=== PATIENT | female | born 1960 | race Caucasian/White ===

== ENCOUNTER 2021-07-12 15:41 | Emergency (ER) | payer MEDICARE, OTHER ==
[2021-07-12 16:40] LABS: HEMOGLOBIN 11.4 gm/dl (12.3-15.3); RED BLOOD COUNT 3.44 M/UL (4.00-5.10); WHITE BLOOD COUNT 13.6 K/UL (4.5-11.0)
[2021-07-12 17:01] LABS: BUN/CREATININE RATIO 7 (0-10)
== END 2021-07-12 20:45 | disposition home or self-care (01) ==
LOC: ER1 15:41
PROVIDERS: Physician Assistant
DX: K59.00 Constipation, unspecified (principal); I13.2 Hypertensive heart and chronic kidney disease with heart failure and with stage 5 chronic kidney disease, or end stage renal disease; I50.9 Heart failure, unspecified; I25.2 Old myocardial infarction; N18.6 End stage renal disease; E78.5 Hyperlipidemia, unspecified; J44.9 Chronic obstructive pulmonary disease, unspecified; Z87.891 Personal history of nicotine dependence; Z90.711 Acquired absence of uterus with remaining cervical stump; Z86.73 Personal history of transient ischemic attack (TIA), and cerebral infarction without residual deficits
CPT/HCPCS: 71045; 80053; 81001; 82140; 82550; 82553; 83690; 83874; 83880; 84484; 85025; 85610; 87086; 96374; 99284; J1170

== ENCOUNTER 2021-07-18 11:51 | Inpatient (IN) | payer MEDICARE, OTHER ==
[~2021-07-18] VITALS: Ht 162.6 cm; Wt 49.9 kg
[2021-07-18 12:55] LABS: HEMOGLOBIN 11.3 gm/dl (12.3-15.3); RED BLOOD COUNT 3.52 M/UL (4.00-5.10); WHITE BLOOD COUNT 9.4 K/UL (4.5-11.0)
[2021-07-18 13:41] LABS: BUN/CREATININE RATIO 6 (0-10)
[2021-07-18] MEDS ORDERED: PROAIR DIGIHAL90 MCG INH (18:41)
[2021-07-18] MEDS ORDERED: ONDANSETRON HCL4 MG PO (18:42)
[2021-07-18] MEDS ORDERED: LASIX80 MG PO (18:43)
[2021-07-18] MEDS ORDERED: CYCLOBENZAPRINE10 MG PO (18:43)
[2021-07-18] MEDS ORDERED: DOCUSATE SODIU100 MG PO (18:43)
[2021-07-18] MEDS ORDERED: MIRTAZAPINE7.5 MG PO (18:44)
[2021-07-18] MEDS ORDERED: LACTULOSE10 GM/15 M PO (18:44)
[2021-07-18] MEDS ORDERED: METOPROLOL TART50 MG PO (18:44)
[2021-07-18] MEDS ORDERED: ASPIRIN EC81 MG PO (18:45)
[2021-07-18] MEDS ORDERED: AMLODIPINE BESYL5 MG PO (18:45)
[2021-07-18] MEDS ORDERED: RENVELA800 MG PO (18:45)
[2021-07-18] MEDS ORDERED: AMITRIPTYLINE H50 MG PO (18:46)
[2021-07-18] MEDS ORDERED: ATORVASTATIN CA40 MG PO (18:46)
[2021-07-18] MEDS ORDERED: OMEPRAZOLE40 MG PO (18:46)
[2021-07-18] MEDS ORDERED: MEGACE TAB 40 M40 MG PO (18:47)
--- NOTE | 2021-07-18 22:36 | NUR ---
PT GETS UP TO BATHROOM REMOVES HER TELE, PATIENT INSTRUCTED SHE MUST LEAVE TELE ON SHE STATES UNDERSTANDING. PORTABLE TELE BOX IS PLACED ON PATIENT TO GIVE HER MORE FREEDOM
[2021-07-19 04:17] LABS: HEMOGLOBIN 9.8 gm/dl (12.3-15.3); WHITE BLOOD COUNT 11.4 K/UL (4.5-11.0)
[2021-07-19 04:20] LABS: RED BLOOD COUNT 3.07 M/UL (4.00-5.10)
[2021-07-20 03:47] LABS: HEMOGLOBIN 9.6 gm/dl (12.3-15.3); RED BLOOD COUNT 3.06 M/UL (4.00-5.10); WHITE BLOOD COUNT 9.8 K/UL (4.5-11.0)
--- NOTE | 2021-07-20 10:43 | NUR ---
07/20/21 1043 SPOKE WITH RADIOLOGY REGARDING CONTRAST ENEMA ORDER. 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 MD STATED HE WANTED GASTROGRAPHIN USED.
--- NOTE | 2021-07-20 15:24 | NUR ---
07/20/21 1525 PATIENT REFUSED DIALYSIS TODAY, PATIENT WAS MADE AWARE OF ELEVATED POTASSIUM PER DR COLE IF SHE STILL REFUSES HE WOULD PLAN TO DO DIALYSIS TOMORROW. PATIENT STATED SHE UNDERSTOOD THE RISKS AND THAT HER POTASSIUM "RUNS THAT HIGH" AND THAT SHE WOULD RATHER HAVE DIALYSIS TOMORROW. GRAIN ELEVATOR AGENT WAS NOTIFIED OF PATIENT REFUSAL
[2021-07-21 04:40] LABS: HEMOGLOBIN 9.8 gm/dl (12.3-15.3); RED BLOOD COUNT 3.04 M/UL (4.00-5.10); WHITE BLOOD COUNT 11.1 K/UL (4.5-11.0)
[2021-07-21 15:30] LABS: HEMOGLOBIN 10.5 gm/dl (12.3-15.3); RED BLOOD COUNT 3.24 M/UL (4.00-5.10); WHITE BLOOD COUNT 13.1 K/UL (4.5-11.0)
[2021-07-22 03:19] LABS: HEMOGLOBIN 10.5 gm/dl (12.3-15.3); RED BLOOD COUNT 3.3 M/UL (4.00-5.10)
[2021-07-23 03:00] LABS: HEMOGLOBIN 10.2 gm/dl (12.3-15.3); RED BLOOD COUNT 3.18 M/UL (4.00-5.10); WHITE BLOOD COUNT 10.3 K/UL (4.5-11.0)
[2021-07-24 06:31] LABS: HEMOGLOBIN 9.9 gm/dl (12.3-15.3); RED BLOOD COUNT 3.21 M/UL (4.00-5.10); WHITE BLOOD COUNT 12.6 K/UL (4.5-11.0)
[2021-07-25 07:12] LABS: HEMOGLOBIN 10.6 gm/dl (12.3-15.3); RED BLOOD COUNT 3.33 M/UL (4.00-5.10); WHITE BLOOD COUNT 13.7 K/UL (4.5-11.0)
--- NOTE | 2021-07-25 19:05 | NUR ---
AT SHIFT CHANGE THIS EVENING, PT WAS EXTREMELY IRRITATED THAT THE PAIN MEDICATION THAT IS NOT SCHEDULED HAS NOT BEEN GIVEN EXACTLY WHEN SHE NEEDS IT OR WHEN SHE WANTS THE MEDICATION, EVEN IF IT IS NOT WITHIN THE 6 HOUR WINDOW OF GIVING THE MEDICATION WRITTEN PER THE MD. PT VOICED UNDERSTANDING THIS MORNING THAT THE DECISION WAS MADE TO DC ONE OF HER PAIN MEDICATIONS DUE TO THE FACT THE THE PT JUST RECENTLY HAD A SMALL BOWEL RESECTION WITH AN OSTOMY AND HAS NOT HAD A BOWEL MOVEMENT IN FIVE DAYS THAT IT WOULD BE IN HER BEST PLAN OF CARE STOP THE IV PUSH PAIN MEDICATION. PT STILL HAS SEVERAL DIFFERENT MEDICATIONS CLASSIFIED PRN SHE CAN BE GIVEN IF NEEDED FOR PAIN. ADDITIONALLY, EXPLAINED TO THE PT THAT SHE HAD A CRITICAL LAB VALUE OF 5.5 WITH PER POTASSIUM WHICH IS THE REASON WHY THE KAYXALATE WAS GIVEN THIS MORNING TO TRY AND HELP HER HAVE A BOWEL MOVEMENT. AT SHIFT CHANGE, PT HAS STILL NOT HAD A BOWEL MOVEMENT. EXPLAINED TO THE PT WITH ODILIA PRESENT IN THE ROOM THE SEVERAL DIFFERENT REASONS, DISCUSSED ABOVE THAT THE PAIN MEDICATION IV PUSH WAS DISCONTINUED. WILL CONTINUE TO MONITOR HER PAIN. EXPLAINED TO THE PT THAT THE TREATMENT MUST FOCUS ON THE ENTIRE PT, GOING BY LABS, SURGERY, AND BOWEL PATTERNS IN ORDER FOR THE PT TO RECEIVE THE BEST CARE POSSIBLE WHILE SHE IS IN THE HOSPITAL.
[2021-07-26 06:24] LABS: HEMOGLOBIN 10.2 gm/dl (12.3-15.3); RED BLOOD COUNT 3.23 M/UL (4.00-5.10)
--- NOTE | 2021-07-26 07:20 | NUR ---
PATIENT HAD CRITICAL LAB THIS AM. HER POTASSIUM WAS 5.6. THE VALUE WAS REPORTED TO THE MEDICAL REPRESENTATIVE. DR. BARFIELD ASKED THAT THE VALUE BE REPORTED TO THE DAY SHIFT DOCTOR HE DIDN'T KNOW WHAT WAS GOING ON WITH THIS PATIENT. WILL REPORT TO DAY SHIFT DOCTOR AT 0800. WILL CONTINUE TO MONITRO.
[2021-07-27 06:21] LABS: HEMOGLOBIN 10.5 gm/dl (12.3-15.3); RED BLOOD COUNT 3.23 M/UL (4.00-5.10); WHITE BLOOD COUNT 15.7 K/UL (4.5-11.0)
--- NOTE | 2021-07-27 07:09 | NUR ---
PATENT HAD CRITICAL LAB POTASSIUM OF 5.8 THIS AM AT 0700. VALUE CALLED TO DR. BARFIELD. HE ORDERED 10 UNITS OF INSULIN AND AN AMP OF D50 AND A RECHECK IN ONE HOUR.
[2021-07-28 06:41] LABS: HEMOGLOBIN 9.5 gm/dl (12.3-15.3); RED BLOOD COUNT 3.13 M/UL (4.00-5.10)
[2021-07-28 06:47] LABS: WHITE BLOOD COUNT 9.1 K/UL (4.5-11.0)
[2021-07-28] MEDS ORDERED: TYLENOL325 MG PO (10:23)
== END 2021-07-28 15:21 | disposition home health service (06) | DRG 329 ==
LOC: ER1 11:51 → M/S 17:45 → PROG CARE 17:45 → CDU 17:45 → PROG CARE 22:21 → M/S 07-23 17:47
PROVIDERS: Anesthesiology; Internal Medicine; Internal Medicine Nephrology; Nurse Practitioner; Physician Assistant; Surgery; ADMIT Internal Medicine
PROC: 0D1N4Z4 Bypass Sigmoid Colon to Cutaneous, Percutaneous Endoscopic Approach (ICD-10-PCS; 2021-07-21)
PROC: 5A1D70Z Performance of Urinary Filtration, Intermittent, Less than 6 Hours Per Day (ICD-10-PCS; 2021-07-21)
PROC: 0DBN4ZZ Excision of Sigmoid Colon, Percutaneous Endoscopic Approach (ICD-10-PCS; principal; 2021-07-21 13:15)
PROC: 5A1D70Z Performance of Urinary Filtration, Intermittent, Less than 6 Hours Per Day (ICD-10-PCS; 2021-07-24)
PROC: 5A1D70Z Performance of Urinary Filtration, Intermittent, Less than 6 Hours Per Day (ICD-10-PCS; 2021-07-27)
DX: K56.609 Unspecified intestinal obstruction, unspecified as to partial versus complete obstruction (principal); N18.6 End stage renal disease; I12.0 Hypertensive chronic kidney disease with stage 5 chronic kidney disease or end stage renal disease; K80.20 Calculus of gallbladder without cholecystitis without obstruction; I25.10 Atherosclerotic heart disease of native coronary artery without angina pectoris; Z20.822 Contact with and (suspected) exposure to COVID-19; K59.00 Constipation, unspecified; E87.5 Hyperkalemia; E83.119 Hemochromatosis, unspecified; K21.9 Gastro-esophageal reflux disease without esophagitis; K52.9 Noninfective gastroenteritis and colitis, unspecified; K80.80 Other cholelithiasis without obstruction; K44.9 Diaphragmatic hernia without obstruction or gangrene; D63.1 Anemia in chronic kidney disease; Z99.2 Dependence on renal dialysis; Z98.890 Other specified postprocedural states; Z90.5 Acquired absence of kidney; Z95.1 Presence of aortocoronary bypass graft; Z88.8 Allergy status to other drugs, medicaments and biological substances; Z82.49 Family history of ischemic heart disease and other diseases of the circulatory system; Z91.14 Patient's other noncompliance with medication regimen
CPT/HCPCS: 36415; 74270; 78226; 80048; 80053; 81001; 82550; 82553; 82962; 83540; 83550; 83605; 83690; 83735; 83874; 83880; 84100; 84484; 85025; 85027; 85610; 85652; 86140; 87040; 87086; 90937; 93005; 94640; 94760; 96374; 97116-GP-CQ; 97161; 97530; 97530-GP-CQ; 99284; A9537; J0360; J1100; J1170; J2001; J2270; J2405; J2710; J3010; J7030; J7040; J7120; Q0177; Q9963; U0002

== ENCOUNTER → 2021-12-03 | Outpatient (CLI) | payer MEDICARE, OTHER ==
[~2021-12-03] MED LIST: AMITRIPTYLINE H50 MG PO; AMLODIPINE BESYL5 MG PO; ASPIRIN EC81 MG PO; ATORVASTATIN CA40 MG PO; CYCLOBENZAPRINE10 MG PO; DOCUSATE SODIU100 MG PO; HYDROCODON-ACE1 EAC6 PO; LACTULOSE10 GM/15 M PO; LASIX80 MG PO; MEGACE TAB 40 M40 MG PO; METOPROLOL TART50 MG PO; MIRALAX17 GM PO; MIRTAZAPINE7.5 MG PO; OMEPRAZOLE40 MG PO; ONDANSETRON HCL4 MG PO; PROAIR DIGIHAL90 MCG INH; RENVELA800 MG PO; TYLENOL325 MG PO; ZOLOFT25 MG PO
== END ==
LOC: EMI 12-01 10:45
DX: G93.49 Other encephalopathy (principal); R41.0 Disorientation, unspecified; F03.90 Unspecified dementia, unspecified severity, without behavioral disturbance, psychotic disturbance, mood disturbance, and anxiety; M50.31 Other cervical disc degeneration, high cervical region; M43.12 Spondylolisthesis, cervical region; Z86.79 Personal history of other diseases of the circulatory system
CPT/HCPCS: 70551

== ENCOUNTER → 2021-12-24 | Outpatient (CLI) | payer MEDICARE, OTHER ==
[~2021-12-24] MED LIST changes: +FAMOTIDINE20 MG PO; +LASIX40 MG PO; +MIRALAX 119 GR119 GM PO; +NITROSTAT0.4 MG SL; +PROAIR HFA8.5 GM INH; +REMERON15 MG PO; +TYLENOL EXTRA500 MG PO
[2021-12-24 13:51] LABS: HEMOGLOBIN 14.1 gm/dl (12.3-15.3); RED BLOOD COUNT 4.58 M/UL (4.00-5.10); WHITE BLOOD COUNT 7.3 K/UL (4.5-11.0)
== END ==
LOC: OPSV2 12:30
PROVIDERS: Anesthesiology
DX: Z01.818 Encounter for other preprocedural examination (principal); R94.31 Abnormal electrocardiogram [ECG] [EKG]
CPT/HCPCS: 80048; 85025; 93005

== ENCOUNTER 2021-12-29 06:22 | Inpatient (IN) | payer MEDICARE, OTHER ==
[~2021-12-29] VITALS: Ht 162.6 cm; Wt 50.3 kg
--- NOTE | 2021-12-30 19:08 | NUR ---
[address] Lima inquiring about patient's dialysis days which are Mon, Wed & Fri. Also wanted to know if she was on dialysis list today. Called the dialysis nurse, he said he knew nothing about the patient. Stated Dr Lima would have to put a consult for Dr Vega. 1550 Dr Lima informed he needed to request a consult with Dr Vega. [address] Vega, informed of consult. He stated consult should have been done yesterday. Ordered a BMP on the patient STAT. Lab results called to Dr Vega, stated he would call in Dialysis Nurse to do dialysis on patient tonight.
[2022-01-01 02:48] LABS: HEMOGLOBIN 12.6 gm/dl (12.3-15.3); RED BLOOD COUNT 3.97 M/UL (4.00-5.10); WHITE BLOOD COUNT 9.4 K/UL (4.5-11.0)
--- NOTE | 2022-01-01 13:46 | NUR ---
PATIENT BLADDER SCANNED AFTER COMPLAINTS OF BLADDER DISTENTION AND BURNING. PATIENT HAD 800 ML OF URINE ON SCAN. DR. PEARSON MADE AWARE. ORDERED RN TO ANCHOR A RIVERO CATHETER AND ENSURE BLADDER TRAINING WAS PERFORMED BEFORE CATHETER WAS REMOVED. MD ALSO ORDERED RN TO OBTAIN A URINALYSIS.
--- NOTE | 2022-01-03 11:25 | NUR ---
FAMILY INSISTED ON TRANSPORTING PATIENT IN WHEELCHAIR WITHOUT ASSISTANCE. RN OFFERED TO ASSIST WITH TRANSPORT AND TO CARRY BAGS DOWNSTAIRS. PATIENT AND FAMILY DENIED. SECURITY CALLED TO PROVIDE ASSISTANCE NEEDED.
== END 2022-01-03 11:26 | disposition home or self-care (01) | DRG 329 ==
LOC: OR 06:22 → M/S 06:22 → EDSTATUS 07:30 → OR 07:30 → M/S 16:18 → OR 16:19 → M/S 01-03 11:26
PROVIDERS: Internal Medicine Nephrology; ADMIT Surgery
PROC: 0DBL0ZZ Excision of Transverse Colon, Open Approach (ICD-10-PCS; principal; 2021-12-29 07:30)
DX: Z43.3 Encounter for attention to colostomy (principal); N18.6 End stage renal disease; G93.49 Other encephalopathy; I13.2 Hypertensive heart and chronic kidney disease with heart failure and with stage 5 chronic kidney disease, or end stage renal disease; Z20.822 Contact with and (suspected) exposure to COVID-19; I25.10 Atherosclerotic heart disease of native coronary artery without angina pectoris; K21.9 Gastro-esophageal reflux disease without esophagitis; I50.9 Heart failure, unspecified; E78.5 Hyperlipidemia, unspecified; K59.09 Other constipation; J44.9 Chronic obstructive pulmonary disease, unspecified; M79.7 Fibromyalgia; F41.9 Anxiety disorder, unspecified; E87.5 Hyperkalemia; G62.9 Polyneuropathy, unspecified; F03.90 Unspecified dementia, unspecified severity, without behavioral disturbance, psychotic disturbance, mood disturbance, and anxiety; F29 Unspecified psychosis not due to a substance or known physiological condition; I67.1 Cerebral aneurysm, nonruptured; I45.81 Long QT syndrome; Z86.79 Personal history of other diseases of the circulatory system; Z88.6 Allergy status to analgesic agent; Z79.01 Long term (current) use of anticoagulants; Z79.82 Long term (current) use of aspirin; Z90.49 Acquired absence of other specified parts of digestive tract; Z90.710 Acquired absence of both cervix and uterus; Z98.890 Other specified postprocedural states; Z82.49 Family history of ischemic heart disease and other diseases of the circulatory system; Z95.1 Presence of aortocoronary bypass graft; Z87.891 Personal history of nicotine dependence; I25.2 Old myocardial infarction; Z95.2 Presence of prosthetic heart valve
CPT/HCPCS: 36415; 80048; 80053; 81001; 85025; 90937; 94664; 94760; J0690; J1100; J1170; J2001; J2270; J2370; J2405; J2704; J2710; J3010; J7030; J7040; J7120

== ENCOUNTER 2022-03-26 17:16 | Emergency (ER) | payer MEDICARE, OTHER ==
[2022-03-26 19:16] LABS: HEMOGLOBIN 12.7 gm/dl (12.3-15.3); RED BLOOD COUNT 3.92 M/UL (4.00-5.10); WHITE BLOOD COUNT 9.7 K/UL (4.5-11.0)
[2022-03-26 19:45] LABS: BUN/CREATININE RATIO 6 (0-10)
[2022-03-26] MEDS ORDERED: CLEOCIN HCL150 MG PO (20:33)
[2022-03-26] MEDS ORDERED: PROBIOTIC & AC1 EACH PO (20:33)
== END 2022-03-26 20:55 | disposition home or self-care (01) ==
LOC: ER1 17:16
PROVIDERS: Physician Assistant
DX: K91.89 Other postprocedural complications and disorders of digestive system (principal); G89.18 Other acute postprocedural pain; I50.9 Heart failure, unspecified; J44.9 Chronic obstructive pulmonary disease, unspecified; Z98.818 Other dental procedure status; N18.6 End stage renal disease; Z99.2 Dependence on renal dialysis; Y83.9 Surgical procedure, unspecified as the cause of abnormal reaction of the patient, or of later complication, without mention of misadventure at the time of the procedure
CPT/HCPCS: 70486; 80053; 82550; 82553; 83605; 84484; 85025; 86140; 96360; 99284

== ENCOUNTER 2022-04-18 18:01 | Observation (INO) | payer MEDICARE, OTHER ==
[~2022-04-18] VITALS: Ht 165.1 cm; Wt 54.4 kg
[~2022-04-18 18:01] MED LIST changes: +AMLODIPINE BESY10 MG PO; -AMLODIPINE BESYL5 MG PO; +CLEOCIN HCL150 MG PO; +PROBIOTIC & AC1 EACH PO
[2022-04-18 19:10] LABS: HEMOGLOBIN 8.8 gm/dl (12.3-15.3); RED BLOOD COUNT 2.67 M/UL (4.00-5.10); WHITE BLOOD COUNT 8.2 K/UL (4.5-11.0)
[2022-04-18 19:33] LABS: BUN/CREATININE RATIO 12 (0-10)
[2022-04-19] MEDS ORDERED: DONEPEZIL HCL5 MG PO (09:49)
[2022-04-20 03:54] LABS: HEMOGLOBIN 8.6 gm/dl (12.3-15.3); RED BLOOD COUNT 2.63 M/UL (4.00-5.10)
[2022-04-20 03:57] LABS: WHITE BLOOD COUNT 10.9 K/UL (4.5-11.0)
[2022-04-20 22:09] LABS: HEMOGLOBIN 8.5 gm/dl (12.3-15.3)
[2022-04-21 02:36] LABS: HEMOGLOBIN 8.6 gm/dl (12.3-15.3); RED BLOOD COUNT 2.59 M/UL (4.00-5.10); WHITE BLOOD COUNT 12.6 K/UL (4.5-11.0)
[2022-04-21 09:14] LABS: HBSAG SCREEN Negative (Negative); HCV AB <0.1 (0.0-0.9); HEP A AB, IGM Negative (Negative); HEP B CORE AB, IGM Negative (Negative)
--- NOTE | 2022-04-21 18:11 | NUR ---
1529 04/21/22 PT RETURNS FROM [facility]. SHE REPORTS SHE IS IN SEVERE PAIN AND NEEDS HER MORPHINE. DAUGHTER AT BEDSIDE AND IS ASKING FOR CT RESULTS. NOTIFIED DR CARTER AND HE WILL COME SEE AND TALK TO PATIENT. MORPHINE GIVEN PER ORDERS.
--- NOTE | 2022-04-21 18:13 | NUR ---
1745 04/21/2022 PT SCREAMING FROM HER ROOM "HELP" UPON ENTERING ROOM PATIENT HAS TOOK OFF ALL OF HER MONITOR EQUIPMENT AND STATES, " I CANT BREATHE, IM SO ANXIOUS I NEED SOMETHING FOR ANXIETY." MONITOR REAPPLIED TO PT AND OXYGEN LEVEL IS 94%. VITALS OTHERWISE ARE NORMAL. EDUCATED PT THAT I JUST GAVE HER A XANAX FOR HER ANXIETY AND HER BREATHING IS OK. ALSO EDUCATED HER ABOUT KEEPING HER MONITOR ON.
--- NOTE | 2022-04-21 18:15 | NUR ---
181404/21/2022 PT COMES OUT [facility] AND STATES, " I CANT BREATHE." INSTRUCTED PT TO LAY BACK DOWN AND I REAPPLIED ALL THE MONTIOR EQUIPMENT. SHE STATES, " I NEED SOMETHING FOR MY NERVES. ALL THIS IS MAKING ME ANXIOUS." OXYGEN LEVEL IS AGAIN 98% ON ROOM AIR AND ALL OTHER VITALS ARE WITHIN NORMAL LEVELS. SHE ASKS ME TO CALL THE DOCTOR AND ASK FOR SOMETHING ELSE. DR LEMUS MADE AWARE OF PTS COMPLAINTS AND CONCERNS.
[2022-04-22 03:41] LABS: HEMOGLOBIN 7.9 gm/dl (12.3-15.3); RED BLOOD COUNT 2.39 M/UL (4.00-5.10)
[2022-04-22] MEDS ORDERED: ROCEPHIN 1 GM AD1 GM IV (12:46)
[2022-04-22] MEDS ORDERED: DOXYCYCLINE HY100 M2 PO (12:46)
[2022-04-22] MEDS ORDERED: PROTONIX 40 MG40 M1 PO (13:11)
[2022-04-22] MEDS ORDERED: MORPHINE SU IV (13:30)
[2022-04-22 15:11] LABS: HEMATOCRIT 24.1 % (34.0-46.6)
== END 2022-04-22 13:40 | disposition other institution (70) ==
LOC: ER1 18:01 → PROG CARE 20:57 → CDU 20:57 → PROG CARE 04-19 06:20 → MED SURG 4 04-22 00:05
PROVIDERS: Family Medicine; Internal Medicine; Internal Medicine Hematology & Oncology; Internal Medicine Nephrology; ADMIT Internal Medicine
DX: R07.89 Other chest pain (principal); I12.0 Hypertensive chronic kidney disease with stage 5 chronic kidney disease or end stage renal disease; N18.6 End stage renal disease; D63.1 Anemia in chronic kidney disease; E78.5 Hyperlipidemia, unspecified; M79.7 Fibromyalgia; I25.10 Atherosclerotic heart disease of native coronary artery without angina pectoris; Z99.2 Dependence on renal dialysis; J44.9 Chronic obstructive pulmonary disease, unspecified; F17.200 Nicotine dependence, unspecified, uncomplicated; Z88.8 Allergy status to other drugs, medicaments and biological substances; Z95.0 Presence of cardiac pacemaker; Z95.1 Presence of aortocoronary bypass graft; Z95.2 Presence of prosthetic heart valve; Z95.5 Presence of coronary angioplasty implant and graft
CPT/HCPCS: ECHO; 36415; 71045; 80048; 80053; 80074; 82550; 82553; 82607; 82728; 82746; 82747; 83010; 83540; 83550; 83615; 84484; 85014; 85018; 85025; 85027; 85045; 85379; 85610; 85730; 93005; 93306; 93970; 94664; 94760; 96374; 96375; 96376; 99285; G0378; J0696; J1644; J2270; J2405; Q0177; Q9967

== ENCOUNTER 2022-05-01 10:12 | Observation (INO) | payer MEDICARE, OTHER ==
[~2022-05-01] VITALS: Ht 165.1 cm; Wt 54.4 kg
[~2022-05-01 10:12] MED LIST changes: -ATORVASTATIN CA40 MG PO; +ATORVASTATIN CA80 MG PO; +DONEPEZIL HCL5 MG PO; +DOXYCYCLINE HY100 M2 PO; +METOPROLOL TART25 MG PO; -METOPROLOL TART50 MG PO; +MORPHINE SU IV; +OXYCODON-ACETA1 EAC1 PO; +PROTONIX 40 MG40 M1 PO; +ROCEPHIN 1 GM AD1 GM IV
[2022-05-01 11:34] LABS: HEMOGLOBIN 9.2 gm/dl (12.3-15.3); RED BLOOD COUNT 2.89 M/UL (4.00-5.10); WHITE BLOOD COUNT 8.7 K/UL (4.5-11.0)
[2022-05-01] MEDS ORDERED: BUSPIRONE HCL5 MG PO (14:35)
[2022-05-01] MEDS ORDERED: BRILINTA90 MG PO (14:44)
[2022-05-01] MEDS ORDERED: AMLODIPINE BESY10 MG PO (14:51)
--- NOTE | 2022-05-01 17:26 | NUR ---
PATIENT TOOK OFF SECURITIES SUPERVISOR AND WOULD NOT PUT IT BACK ON . TELEMETRY INFORMED.
--- NOTE | 2022-05-01 18:51 | NUR ---
PATIENTS DAUGHTER INFORMED ME THAT THE PATIENT WAS SMOTHERING AND WE NEEDED TO DO SOMETHING. ASSESSED PATIENT IMMEDIATELY AND NO DISTRESS WAS NOTED. 02 WAS 100 AND LUNG SOUNDED GOOD WENT AHEAD AND GOT A OXYGEN HISTOLOGIC TECHNICIAN AND THE WATER BOTTLE WAS PLACED BECAUSE PATIENT COMPLAINED OF A DRY NOSE. DAUGHTER WAS STILL COMPLAINING SO I CALLED DR DE LA CRUZ WHO SAID GIVE HER A BREATHING TREATMENT. IMMEDIATELY CALLED RESPIRATORY TO INFORM THEM THE ORDER WAS BEING IN AND THAT THE PATIENT NEEDED IT SAVANNAH. WHEN I RETURNED TO THE ROOM THE PATIENTS DAUGHTER SAID THAT THEY WAS NOT WAITING FOR THE BREATHING TREATMENT. SHE THEN PUT HER ILDA IN A WHEELCHAIR AND SAID THEY WOULD BE LEAVING A. INFORMED PATIENT THAT THERE HAD BEEN BLOODWORK AND EKG AND OTHER THINGS THAT WE WERE WAITING ON BUT WE STILL HADNT HEARD BACK FROM IT YET, BUT THEY WERE ORDERED STAT AND THAT IT WOULD BE AGAINST MEDICAL ADVICE TO LEAVE THE HOSPITAL IN THIS CONDITION. PATIENT THEN SIGNED THE AMA FORM.
--- NOTE | 2022-05-01 22:36 | NUR ---
Pt. signed AMA form @18:30 removed 22g IV from Left AC sterile gauze and tape applied.
== END 2022-05-01 18:48 | disposition left against medical advice (07) ==
LOC: ER1 10:12 → M/S 12:52 → CDU 12:52 → M/S 15:07
PROVIDERS: Nurse Practitioner; ADMIT Internal Medicine
DX: I13.2 Hypertensive heart and chronic kidney disease with heart failure and with stage 5 chronic kidney disease, or end stage renal disease (principal); I50.23 Acute on chronic systolic (congestive) heart failure; N18.6 End stage renal disease; D63.1 Anemia in chronic kidney disease; I21.4 Non-ST elevation (NSTEMI) myocardial infarction; I25.10 Atherosclerotic heart disease of native coronary artery without angina pectoris; J44.9 Chronic obstructive pulmonary disease, unspecified; E78.5 Hyperlipidemia, unspecified; M79.7 Fibromyalgia; F03.90 Unspecified dementia, unspecified severity, without behavioral disturbance, psychotic disturbance, mood disturbance, and anxiety; F17.290 Nicotine dependence, other tobacco product, uncomplicated; Z95.1 Presence of aortocoronary bypass graft; Z95.5 Presence of coronary angioplasty implant and graft; Z99.2 Dependence on renal dialysis; Z95.2 Presence of prosthetic heart valve; Z53.29 Procedure and treatment not carried out because of patient's decision for other reasons; Z88.8 Allergy status to other drugs, medicaments and biological substances
CPT/HCPCS: 36415; 36600; 71045; 80053; 82550; 82553; 82803; 83605; 83880; 84484; 85025; 85379; 85610; 85730; 87040; 93005; 94760; 99285; G0378

== ENCOUNTER 2022-05-22 14:22 | Emergency (ER) | payer MEDICARE, OTHER ==
[~2022-05-22 14:22] MED LIST changes: +BRILINTA90 MG PO; +BUSPIRONE HCL5 MG PO
[2022-05-22 18:08] LABS: HEMOGLOBIN 12.8 gm/dl (12.3-15.3); RED BLOOD COUNT 3.96 M/UL (4.00-5.10)
[2022-05-22] MEDS ORDERED: LACTULOSE10 GM/152 PO (18:59)
== END 2022-05-22 19:09 | disposition home or self-care (01) ==
LOC: ER1 14:22
PROVIDERS: Family Medicine
DX: K59.00 Constipation, unspecified (principal); I25.10 Atherosclerotic heart disease of native coronary artery without angina pectoris; I12.9 Hypertensive chronic kidney disease with stage 1 through stage 4 chronic kidney disease, or unspecified chronic kidney disease; N18.9 Chronic kidney disease, unspecified; J44.9 Chronic obstructive pulmonary disease, unspecified; F17.290 Nicotine dependence, other tobacco product, uncomplicated; Z99.2 Dependence on renal dialysis
CPT/HCPCS: 80053; 82550; 82553; 84484; 85025; 85610; 93005; 99283